=== PATIENT | female | born 1950 | race Caucasian/White ===

== ENCOUNTER 2016-08-03 18:52 | Emergency (ER) | payer MEDICARE, BC ==
[~2016-08-03 18:52] MED LIST: SENN1TAB17 PO; SERT-132 PO; ZOFR8TAB PO
[2016-08-03 18:55] VITALS: BP 122/58; PULSE 117; RESP 20; TEMP 101.1; O2SAT 98
== END 2016-08-03 19:35 | disposition left against medical advice (07) ==
LOC: NED 18:52
DX: Z53.21 Procedure and treatment not carried out due to patient leaving prior to being seen by health care provider (principal)
CPT/HCPCS: 99283